=== PATIENT | male | born 1995 | race Two or more races ===

== ENCOUNTER → 2018-12-28 | Emergency (ER) | payer OTHER ==
[~2018-12-28] VITALS: Ht 167.6 cm; Wt 74.8 kg
[~2018-12-28] MED LIST: ACETAMINOPHEN-1 EAC1 ORAL; IBUPROFEN600 MG ORAL; Ketorolac 30mg Inj IM ONE; Ketorolac 30mg Inj ONE; ROBAXIN500 MG PO; Tetanus/Diptheria/Pertussis Vaccine 0.5ml Syr IM ONE
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
[2018-12-28 12:47] VITALS: BP 118/72
[2018-12-28 14:50] VITALS: BP 121/69
[2018-12-28 15:35] VITALS: BP 121/69
--- NOTE | 2018-12-28 15:35 | NUR ---
ED Nurse Note: Pt left w/o signing D/C paper.
== END | disposition home or self-care (01) ==
LOC: EDBD 12:10 → EMR 12:40
DX: S01.21XA Laceration without foreign body of nose, initial encounter (principal); S13.9XXA Sprain of joints and ligaments of unspecified parts of neck, initial encounter; S02.2XXA Fracture of nasal bones, initial encounter for closed fracture; H11.31 Conjunctival hemorrhage, right eye; S63.404A Traumatic rupture of unspecified ligament of right ring finger at metacarpophalangeal and interphalangeal joint, initial encounter; Y04.2XXA Assault by strike against or bumped into by another person, initial encounter; Y92.199 Unspecified place in other specified residential institution as the place of occurrence of the external cause; Y99.0 Civilian activity done for income or pay; Z23 Encounter for immunization
CPT/HCPCS: 12011; 70450; 70486; 72125; 73130; 86703; 86803; 87517; 90471; 90715; 96372; 99284; J1885